=== PATIENT | female | born 1995 | race Caucasian/White ===

== ENCOUNTER 2016-08-08 21:38 | Emergency (ER) | payer MEDICAID ==
[2015-11-25 05:15] VITALS: BMI 27.0
[~2016-08-08 21:38] MED LIST: BUSPAR10 MG PO; PRENATAL COMPLE1 TAB PO; PROAIR HFA8.5 GM INH
[2016-08-08 22:41] LABS: HCG URINE NEGATIVE (NEGATIVE)
== END 2016-08-08 23:18 | disposition home or self-care (01) ==
LOC: D.ER 21:38
PROVIDERS: Nurse Practitioner Acute Care
DX: S00.01XA Abrasion of scalp, initial encounter (principal); V89.2XXA Person injured in unspecified motor-vehicle accident, traffic, initial encounter; Y93.89 Activity, other specified; Y92.410 Unspecified street and highway as the place of occurrence of the external cause

== ENCOUNTER 2018-10-17 20:36 | Emergency (ER) | payer MEDICAID ==
[~2018-10-17] VITALS: Ht 162.6 cm; Wt 59.1 kg
[2018-10-17 20:40] VITALS: Ht 162.6 cm; Wt 59.1 kg
[2018-10-17] MEDS ORDERED: ERYTHROMYCIN OPT1 GM EACH EYE (22:50)
[2018-10-17 23:24] VITALS: BP 110/74
== END 2018-10-17 23:15 | disposition home or self-care (01) ==
LOC: D.ER 20:36
DX: H10.31 Unspecified acute conjunctivitis, right eye (principal)

== ENCOUNTER 2018-11-26 22:46 | Emergency (ER) | payer OTHER ==
[~2018-11-26] VITALS: Ht 162.6 cm; Wt 63.6 kg
[~2018-11-26 22:46] MED LIST changes: +ERYTHROMYCIN OPT1 GM EACH EYE
[2018-11-26 23:00] VITALS: Ht 162.6 cm; Wt 63.6 kg
[2018-11-26] MEDS ORDERED: DOXYCYCLINE HY100 M2 PO (23:53)
[2018-11-27 00:18] VITALS: BP 91/50
== END 2018-11-27 00:19 | disposition home or self-care (01) ==
LOC: D.ER 22:46
DX: L03.114 Cellulitis of left upper limb (principal)

== ENCOUNTER → 2019-07-14 10:05 | Outpatient (CLI) | payer OTHER ==
[2018-11-26 23:00] VITALS: BMI 24.0
[~2019-07-14 10:05] MED LIST changes: +DOXYCYCLINE HY100 M2 PO
== END | disposition home or self-care (01) ==
LOC: D.US 10:00
PROVIDERS: ATTEND Nurse Practitioner Family
DX: N64.4 Mastodynia (principal)

== ENCOUNTER 2019-09-18 20:54 | Emergency (ER) | payer OTHER ==
[2019-09-18 20:59] VITALS: Ht 162.6 cm
[2019-09-18] MEDS ORDERED: NASONEX NASAL S17 GM NS (21:28)
[2019-09-18] MEDS ORDERED: ALBUTEROL SULF8.5 GM INH (21:28)
[2019-09-18 22:07] VITALS: BP 111/55
== END 2019-09-18 22:12 | disposition home or self-care (01) ==
LOC: D.ER 20:54
DX: J30.9 Allergic rhinitis, unspecified (principal)

== ENCOUNTER 2020-08-21 16:26 | Outpatient (CLI) | payer OTHER ==
[2020-05-08 14:32] VITALS: BMI 26.3
[~2020-08-21 16:26] MED LIST changes: +ALBUTEROL SULF8.5 GM INH; +NASONEX NASAL S17 GM NS
[2020-08-21 17:12] LABS: BASOPHILS 0.2 % (0-2); EOSINOPHILS 0.5 % (0-7); HEMATOCRIT 35.8 % (36.0-48.0); HEMOGLOBIN 11.6 g/dL (12-16); IMMATURE GRANULOCYTES 0.8 % (0-5); LYMPHOCYTE ABS# 2.41 10x3/uL (1.18-3.74); LYMPHOCYTES 18.1 % (15-50); MCH 25.8 pg (26.0-34.0); MCHC 32.4 g/dL (31.0-37.0); MCV 79.7 fL (80.0-100.0); MEAN PLATELET VOLUME 10.5 fL (7.4-10.4); MONOCYTES 6.9 % (2-11); NEUTROPHILS 73.5 % (40-80); RBC 4.49 10x6/uL (4.00-5.40); RDW 13.3 % (11.5-14.5); WBC 13.3 10x3/uL (4.8-10.8)
[2020-08-21 17:13] LABS: PLATELET COUNT 273 10x3/uL (130-400)
[2020-08-21 17:17] LABS: CALC OSMOLALITY 268 mosm/kg (275-300); CALCIUM 8.8 mg/dL (8.5-10.1); CARBON DIOXIDE 26.2 mmol/L (21.0-32.0); CHLORIDE - SERUM 103 mmol/L (98-107); CREATININE - SERUM 0.6 mg/dL (0.6-1.3); GLUCOSE 75 mg/dL (74-106); HCG SERUM POSITIVE (NEGATIVE); POTASSIUM - SERUM 3.6 mmol/L (3.5-5.1); SODIUM 136 mmol/L (136-145); UREA NITROGEN 6 mg/dL (7-18); eGFR NON AFRICAN AMERICAN > 90 mL/min (90-120)
[2020-08-21 17:32] LABS: BILIRUBIN NEGATIVE (NEGATIVE); KETONE NEGATIVE (NEGATIVE); NITRITE NEGATIVE (NEGATIVE); UROBILINOGEN NORMAL mg/dL (< 2)
[2020-08-21 17:46] LABS: ALBUMIN 2.8 g/dL (3.4-5.0); ALKALINE PHOSPHATASE 79 U/L (30-120); ALT (SGPT) 22 U/L (10-68); BILIRUBIN - TOTAL 0.13 mg/dL (0.2-1.3); HCG - QUANTITATIVE (MATERNAL) 27967 mIU/mL; PROTEIN - SERUM 6.8 g/dL (6.4-8.2)
== END 2020-08-21 17:39 | disposition home or self-care (01) ==
LOC: D.LDO 16:26 → D.ER 16:26 → EDSTATUS 16:57 → D.LDO 17:39
PROVIDERS: Family Medicine; ATTEND Obstetrics & Gynecology
DX: O26.899 Other specified pregnancy related conditions, unspecified trimester (principal); R10.9 Unspecified abdominal pain

== ENCOUNTER 2020-11-01 16:38 | Outpatient (CLI) | payer OTHER ==
[2020-05-08 14:32] VITALS: BMI 26.3
[2020-11-01 19:15] LABS: BILIRUBIN NEGATIVE (NEGATIVE); KETONE NEGATIVE (NEGATIVE); NITRITE NEGATIVE (NEGATIVE); UROBILINOGEN NORMAL mg/dL (< 2)
[2020-11-01 19:16] LABS: BACTERIA MANY HPF (NONE SEEN); SQUAMOUS EPITHELIAL 0-5 HPF (0-4); WHITE CELLS - URINE 0-5 HPF (0-4)
== END 2020-11-01 20:14 | disposition home or self-care (01) ==
LOC: D.LDO 16:38
PROVIDERS: ATTEND Obstetrics & Gynecology
DX: O35.9XX0 Maternal care for (suspected) fetal abnormality and damage, unspecified, not applicable or unspecified (principal)

== ENCOUNTER 2020-11-21 21:25 | Outpatient (CLI) | payer OTHER ==
[2020-05-08 14:32] VITALS: BMI 26.3
[2020-11-21 23:58] LABS: BILIRUBIN NEGATIVE (NEGATIVE); KETONE NEGATIVE (NEGATIVE); NITRITE NEGATIVE (NEGATIVE); UROBILINOGEN NORMAL mg/dL (< 2)
[2020-11-21 23:59] LABS: BACTERIA MODERATE HPF (NONE SEEN); SQUAMOUS EPITHELIAL 0-5 HPF (0-4); WHITE CELLS - URINE 0-5 HPF (0-4)
== END 2020-11-22 00:10 | disposition home or self-care (01) ==
LOC: D.LDO 21:25 → D.ER 21:25 → EDSTATUS 22:09 → D.LD 22:12 → D.LDO 11-22 00:10
PROVIDERS: ATTEND Student in an Organized Health Care Education/Training Program
DX: O35.9XX0 Maternal care for (suspected) fetal abnormality and damage, unspecified, not applicable or unspecified (principal)

== ENCOUNTER 2020-12-01 20:48 | Outpatient (CLI) | payer OTHER ==
[~2020-12-01] VITALS: Ht 149.9 cm; Wt 78.5 kg
[2020-12-01 20:32] VITALS: Ht 149.9 cm; Wt 78.5 kg
[2020-12-01 21:55] LABS: BASOPHILS 0.3 % (0-2); EOSINOPHILS 1.1 % (0-7); HEMATOCRIT 33.1 % (36.0-48.0); HEMOGLOBIN 10.7 g/dL (12-16); LYMPHOCYTES 19.3 % (15-50); MCH 24.1 pg (26.0-34.0); MCHC 32.3 g/dL (31.0-37.0); MCV 74.5 fL (80.0-100.0); MEAN PLATELET VOLUME 11.1 fL (7.4-10.4); NEUTROPHILS 71.3 % (40-80); RBC 4.44 10x6/uL (4.00-5.40); RDW 13.6 % (11.5-14.5); WBC 11.6 10x3/uL (4.8-10.8)
[2020-12-01 21:57] LABS: BILIRUBIN NEGATIVE (NEGATIVE); KETONE NEGATIVE mg/dL (< 1+); NITRITE NEGATIVE (NEGATIVE); UROBILINOGEN NORMAL mg/dL (< 2)
[2020-12-01 22:07] LABS: PLATELET COUNT 172 10x3/uL (130-400)
[2020-12-01 22:07] LABS: BACTERIA FEW HPF (<MOD); SQUAMOUS EPITHELIAL 11 HPF (0-4); WHITE CELLS - URINE 4 HPF (0-4)
[2020-12-01 22:12] LABS: CALC OSMOLALITY 272 mosm/kg (275-300); CALCIUM 8.1 mg/dL (8.5-10.1); CARBON DIOXIDE 23.6 mmol/L (21.0-32.0); CHLORIDE - SERUM 103 mmol/L (98-107); CREATININE - SERUM 0.6 mg/dL (0.6-1.3); GLUCOSE 75 mg/dL (74-106); POTASSIUM - SERUM 3.8 mmol/L (3.5-5.1); SODIUM 138 mmol/L (136-145); UREA NITROGEN 6 mg/dL (7-18); eGFR NON AFRICAN AMERICAN > 90 mL/min (90-120)
[2020-12-01] MEDS ORDERED: ZITHROMAX TRI-500 MG PO (22:22)
[2020-12-03 07:15] LABS: RAPID PLASMA REAGIN Non Reactive (Non Reactive)
== END 2020-12-02 00:44 | disposition home or self-care (01) ==
LOC: D.LDO 20:48 → D.LD 22:48 → D.LDO 12-02 00:44
PROVIDERS: ATTEND Obstetrics & Gynecology
DX: O26.899 Other specified pregnancy related conditions, unspecified trimester (principal); W19.XXXA Unspecified fall, initial encounter

== ENCOUNTER 2020-12-07 21:00 | Inpatient (IN) | payer OTHER ==
[~2020-12-07] VITALS: Ht 149.9 cm; Wt 79.4 kg
[~2020-12-07 21:00] MED LIST changes: +ZITHROMAX TRI-500 MG PO
[2020-12-07 23:06] LABS: BASOPHILS 0.3 % (0-2); EOSINOPHILS 0.2 % (0-7); HEMATOCRIT 32.8 % (36.0-48.0); HEMOGLOBIN 10.6 g/dL (12-16); LYMPHOCYTES 17.6 % (15-50); MCH 23.7 pg (26.0-34.0); MCHC 32.3 g/dL (31.0-37.0); MCV 73.6 fL (80.0-100.0); MEAN PLATELET VOLUME 10.5 fL (7.4-10.4); NEUTROPHILS 74.9 % (40-80); PLATELET COUNT 184 10x3/uL (130-400); RBC 4.46 10x6/uL (4.00-5.40); RDW 13.9 % (11.5-14.5); WBC 12.5 10x3/uL (4.8-10.8)
[2020-12-07 23:20] LABS: NITRITE NEGATIVE (NEGATIVE); PH 6.5 (5.0-8.0)
[2020-12-07 23:21] LABS: BACTERIA MODERATE HPF (NONE SEEN); BILIRUBIN NEGATIVE (NEGATIVE); KETONE 3+ mg/dL (NEGATIVE); SQUAMOUS EPITHELIAL 27 HPF (0-4); UROBILINOGEN 2 mg/dL (< 2); WHITE CELLS - URINE 6 HPF (0-4)
[2020-12-07 23:35] VITALS: BP 122/58; Ht 149.9 cm; Wt 79.4 kg
[2020-12-08 00:54] LABS: UDS - AMPHET NEGATIVE QUAL (NEGATIVE); UDS - BARB NEGATIVE QUAL (NEGATIVE); UDS - BENZO NEGATIVE QUAL (NEGATIVE); UDS - COCAINE NEGATIVE QUAL (NEGATIVE); UDS - OPIATE NEGATIVE QUAL (NEGATIVE); UDS - PCP NEGATIVE QUAL (NEGATIVE); UDS - THC NEGATIVE QUAL (NEGATIVE)
--- NOTE | 2020-12-08 00:57 | NUR ---
BABY: 0041 PLACENTA: [id number]
--- NOTE | 2020-12-08 03:53 | NUR ---
RECOVERY COMPLETED, VSS, AFEBRILE, RESP EVEN AND UN LABORED, HEART RRR WITH NO AUDIBLE MURMUR, LUNGS CTAB, ABD SOFT AND MILDLY TENDER TO TOUCH, FF AT U/1 AND MIDLINE, LOCHIA RUBRA MODERATE AMOUNT NO CLOTS ON LIGHT FUNDAL MASSAGE, PERICARE AND THOMAS CARE COMPLETED, PERIPAD/CHUX REPLACED, THOMAS EMPTIED 130 ML CLEAR YELLOW URINE AND RESET TO GRAVITY DRAINAGE, ICE PACK OVERLAY TO INCISION SITE, DRESSING CDI TO LOW TRANSVERSE INCISION. BLANCO FREELY, NEGATIVE ARIADNA'S SIGN B LE, NO EDEMA NOTED. PIV INFUSING NS WITH 20 UNITS PITOCIN AT 125ML/HR WITHOUT DIFFICULTY TO LEFT HAND, DENIES C/O PAIN OR NEED FOR PRN PAIN MEDICATION OFFERED AT THIS TIME, [place]ON [place] SODA PROVIDED UPON REQUEST, NO OTHER NEEDS VOICED OR CONCERNS. C/L IN EASY REACH, HOB ELEVATED 30 DEGREES, SR UP X2, BED BRAKES LOCKED, BED IN LOW POSITION, SUPPORT PERSON SLEEPIGN ON COUCH IN PT ROOM, NAD NOTED. WILL MONITOR FOR CHANGES IN CONDITION.
--- NOTE | 2020-12-08 04:46 | NUR ---
PT UNABLE TO USE C/L-STATES NOT WORKING ALTHOUGH TV REMOTE PORTION DOES WORK; FAMILY MEMBER TO NURSING DESK TO REQUEST PRN PAIN MEDICATION, SAME PROVIDED, ENCOURAGED TO NOTIFY THIS RN OR COME TO NURSING DESK UNTIL MAINTENANCE ROUNDS TODAY; WORK ORDER COMPLETD. PT DENIES OTHER NEEDS AT THIS TIME.
--- NOTE | 2020-12-08 05:20 | NUR ---
ROUNDS COMPLETED, PT AAOX4, RESP EVEN AND UNLABORED, DENIES C/O PAIN OR NEEDS/CONCERNS AT THIS TIME, SUPPORT PERSON AT BS. WILL MONITOR.
--- NOTE | 2020-12-08 06:43 | NUR ---
PT AAOX4 ON ROUNDS, DENIES C/O PAIN, PERICARE/FOLY CARE COMPLETED, PERIPAD CHANGED, THOMAS EMPTIED 130 ML AND RESET TO GRAVITY DRAINAGE. ICE PACK OVERLAY TO LOW TRANSVERSE INCISION DRESSING, DRESSING CDI TO INSPECTION. CUP OF LEMON [place] SODA PROVDED PER REQUEST, NO OTHER NEEDS VOICED AT THIS TIME.
[2020-12-08 09:01] VITALS: BP 114/55
--- NOTE | 2020-12-08 09:01 | NUR ---
sHIFT ASSESSMENT COMPLETED PER FLOWSHEET. VSS. FUNDUS FIRM, MIDLINE AND UU WITH SMALL AMOUNT RUBRA LOCIA NO CLOTS NOTED. COMPLAINS OF ABD AND INCISIONAL DISCOMFORT 3/10, MEDICATED PER EMAR. LOW TRANSVERSE ABD INSICSION WELL APPROXIMATED, IN TACT, NO DRAINAGE NOTED. INSTRUCTED ON INCISIONAL CARE AND CLEAN PERIPAD PLACED OVER INCISION. EDUCATIED ON S/S OF INFECTION AND ACTIVITY LIMITATIONS, VERBALIZED UNDERSTANDING. REPORTS PASSING FLATUS. THOMAS IN PLACE. URINE CLEAR YELLOW W/O ODER. DENIES NEEDS AT THIS TIME. POC DISCUSSED, VERBALIZED UNDERSTANDING AND DENIES QUESTIONS AT THIS TIME. BED IN LOW POSITION WITH SRUPX2 CALL LIGHT AND PHONE WITHIN REACH. WILL CONTINUE TO MONITOR
--- NOTE | 2020-12-08 10:00 | NUR ---
DR BOOGIE GAVE VERBAL ORDERS TO GET PT UP, DC THOMAS, REGULAR DIET, PUT ON PO PERCOCET 5/10 FOR PAIN AND ONCE TORADOL HAS BEEN GIVEN 4X CAN GIVE 800 MOTRIN Q8HRS FOR PAIN ALSO.
--- NOTE | 2020-12-08 11:16 | NUR ---
PT STATES SHE FEELS HOT AND NAUSEATED. GAVE ZOFRAN. REFILLED GLASS OF WATER. PLACED COOL RAG ON FORHEAD, ADJUSTED TEMP IN ROOM, REMOVED SCD AND SOCKS, PT STATES FEELING BETTER. EMPTIED THOMAS 500CC CLEAR YELLOW URINE. DENIES FURTHER NEEDS AT THIS TIME. WILL MONITOR CLOSELY
--- NOTE | 2020-12-08 14:00 | NUR ---
PT UP TO THE BATHROOM. VOIDED WITHOUT COMPLAINT. FIRST VOID AFTER THOMAS REMOVED.
--- NOTE | 2020-12-08 14:30 | NUR ---
PT UP TO THE BATHROOM TO VOID. NO COMPLAINTS. SECOND VOID AFTER THOMAS REMOVED
[2020-12-08 16:30] VITALS: BP 112/64
--- NOTE | 2020-12-08 19:00 | NUR ---
PT UP TO VOID. NO COMPLAINTS. THIRD VOID AFTER THOMAS REMOVED.
[2020-12-08 19:15] VITALS: BP 112/55
--- NOTE | 2020-12-08 19:15 | NUR ---
PM ASSESSMENT COMPLETED, VSS, AFEBRILE, RESP EVEN AND UNLABORED, LUNGS CTAB, INCENTIVE SPIROMETRY TO 2000ML INSPIRED VOLUME, HEART RRR WITHOUT AUDIBLE MURMUR, BS+X4 QUADS, +FLATUS, LOW TRANSVERSE ABD DRESSING IN PLACE-CDI WITHOUT DRAINAGE NOTED, VOIDING WITHOUT DIFFICULTY, FF AT U/2 AND MIDLINE, LOCHIA RUBRA SCANT AMOUNT, DENIES CLOTS, BLANCO FREELY, NEGATIVE ARIADNA'S SIGN B LE, PEDAL PULSES +/=/+2 B. CUP OF ICE WATER AND LEMON [place] SODA PROVIDED UPON REQUEST, DENIES OTHER NEEDS. REVIEWED POC WITH PT AND FAMILY AT BS STATING UNDERSTANDING OF ALL INFORMATION PROVIDED. WILL MONITOR.
--- NOTE | 2020-12-08 20:15 | NUR ---
ROUNDS COMPLETED, DENIES NEEDS/CONCERNS. VOIDS WITHOUT DIFFICULTY-STATES X3 SINCE CATHETER REMOVAL. REPORTS LOCHIA SCANT WITHOUT CLOTS ON INQUIRY. FAMILY AT BS WITH PT. C/L IN EASY REACH, CONTINUE TO MONITOR.
--- NOTE | 2020-12-08 21:36 | NUR ---
ROUNDS COMPLETED, PROVIDED LAST DOSE TORADOL, PT NOW DECIDES DOES NOT WANT PERCOCET UNTIL AFTER SIGNIFICANT OTHER VISITS PT AND THIS PM. PROVIDED CUP OF ICE WATER. NO OTHER NEEDS VOICED AT THIS TIME. WILL MONITOR.
--- NOTE | 2020-12-08 22:19 | OP ---
PATIENT NAME: DINORA WOLF MEDICAL RECORD: [id number] :96 LOCATION:[id number] ADMISSION DATE:12/07/20 SURGEON: JEROME PIERRE DO DATE OF OPERATION: 12/08/2020 PREOPERATIVE DIAGNOSIS: A 37 weeks painful contractions in labor, prior . POSTOPERATIVE DIAGNOSES: A 37 weeks painful contractions in labor, prior . PRIMARY SURGEON: Jerome Pierre DO ANESTHESIA: Spinal. PROCEDURE: Repeat low transverse via Pfannenstiel incision. FINDINGS: Viable male born at 12:41 a.m. vertex position, Apgars 9 and 9, weight 7 pounds 8-1/2 ounces. Clear amniotic fluid. True knot in cord. SPECIMENS: Placenta and cord blood. ESTIMATED BLOOD LOSS: 850 cc. IV FLUIDS: Per anesthesia. URINE OUTPUT: 500 cc clear yellow urine. INFECTION PROPHYLAXIS: Clindamycin and gentamicin. COMPLICATIONS: None. INDICATIONS: The patient continued to have painful contractions despite IV hydration with increasing pain and regularity. Due to labor, decision made for repeat . Risks reviewed including bleeding, pain, infection, damage to surrounding structures, reoperation, and VTE, risks of prematurity for infant. The patient expressed understanding and agreed to the procedure. DESCRIPTION OF PROCEDURE: The patient was taken to the operating room where spinal anesthesia was administered and found to be adequate. She was prepped and draped in the normal sterile fashion in dorsal supine position with leftward tilt. Pfannenstiel skin incision was made with the scalpel and carried down to the underlying layer of fascia. The fascia was incised in the midline and the incision extended laterally with Souza scissors. The fascia was grasped with Janine clamps and the rectus muscle dissected off sharply off the inferior and superior aspects. The rectus muscle in the midline. The peritoneum identified and noted to be free of adherent bowel or bladder and entered bluntly. The peritoneum was further with gentle traction. Bladder blade was placed. Metzenbaums used to create a bladder flap. Bladder blade replaced. Transverse incision was made on the uterus with scalpel, extended with upward and downward gentle traction. 's head brought to the incision, very large in size. The vacuum applied with suction to the green level and one gentle pull. This allowed the head to be delivered without difficulty. No OPERATIVE REPORT [id number] DINORA WOLF nuchal cord and rest of the baby's shoulders and body followed without difficulty. Vacuum removed. Mouth and nose were suctioned. Cord was clamped and cut. The infant handed to awaiting pediatric nurse with good cry. Placenta delivered manually. Uterus exteriorized. Dry laparotomy sponge used to assure complete removal of placental membranes. Hysterotomy reapproximated with 0 Vicryl in a running locked fashion. Area of bleeding noted on the right lateral side and this side was reinforced with multiple figure of eight stitchewith good hemostasis. Some bleeding on the inferior edge, buzzed with cautery with good hemostasis. Attention was turned to the posterior cul-de-sac, this irrigated and suctioned to remove blood clots and fluid. Hysterotomy was reexamined and noted to be hemostatic. Fundus firm. Uterus replaced into the abdominal cavity. Bladder blade replaced. Moist laparotomy sponges used to clear gutters of blood clots and fluid. Muscle reapproximated in a running fashion with 2-0 Monocryl. The muscle irrigated and no bleeding noted. Fascia closed in a continuous fashion with 0 Vicryl. Subcutaneous layer irrigated and bleeding vessels cauterized with bovie, then closed with plain gut. Skin closed in a subcuticular fashion with 3-0 Monocryl and Dermabond applied. Dressing applied. The patient tolerated the procedure well and was taken to the recovery room in stable condition. All laps, needles, and instrument counts were correct x2. TRANSINT:[id number] Voice Confirmation ID: [id number] DOCUMENT ID: [id number] JEROME PIERRE DO at 2219 CC: [id number] DICTATION DATE: 12/08/201858 MELLOWING MACHINE OPERATOR: 12/08/202022 ADM IN [facility] [address] [place] [address]
--- NOTE | 2020-12-08 22:30 | NUR ---
ROUNDS COMPLETED, RESP EVEN AND UNLABORED, NAD NOTED. C/L IN EASY REACH, WILL MONITOR.
[2020-12-08 23:36] VITALS: BP 112/67
--- NOTE | 2020-12-08 23:36 | NUR ---
ROUNDS COMPLETED. VSS, AFEBRILE, DENIES C/O PAIN, +FLATUS, FF AT U/2 AND MIDLINE, LOCHIA RUBRA SCANT NO CLOTS, VOIDING WITHOUT DIFFIUCLLTY, DENIES C/O BREAST PAIN. C/L IN EASY REACH, CUP OF LEMON [place] SODA PROVIDED UPON REQUEST, NO OTHER NEEDS AT THIS TIME. CONTINUE TO MONITOR.
--- NOTE | 2020-12-09 01:50 | NUR ---
PT USING C/L TO REQUEST SNACK, SNACKS AVAILABLE PROVIDED AND PT DENIES OTHER NEEDS AT THIS TIME, C/L IN EASY REACH, WILL MONITOR.
--- NOTE | 2020-12-09 03:50 | NUR ---
ROUNDS COMPLETED, PT RESTING IN BED WITH EYES CLOSED, RESP EVEN AND UNLABORED, C/L IN EASY REACH. CONTINUE TO MONITOR.
--- NOTE | 2020-12-09 04:45 | NUR ---
PT , NAD NOTED. C/L IN EASY REACH.
--- NOTE | 2020-12-09 05:59 | NUR ---
PT RINGS CALL LIGHT REQUESTING ICE WATER TO DRINK. THIS RN TO BEDSIDE. FRESH ICE WATER SERVED. PT DENIES FURTHER NEEDS OR C/O PAIN. PT ASSISTED W/SWADDLING BABY PER REQUEST.
--- NOTE | 2020-12-09 06:30 | NUR ---
MOLDER FITTING HERE FOR AM LAB DRAWS.
[2020-12-09 07:00] LABS: BASOPHILS 0.4 % (0-2); EOSINOPHILS 0.4 % (0-7); HEMOGLOBIN 8.3 g/dL (12-16); LYMPHOCYTES 17.9 % (15-50); MCH 24.1 pg (26.0-34.0); MCV 75.2 fL (80.0-100.0); MEAN PLATELET VOLUME 10.1 fL (7.4-10.4); MONOCYTES 6.3 % (2-11); PLATELET COUNT 171 10x3/uL (130-400); RBC 3.46 10x6/uL (4.00-5.40); RDW 14.1 % (11.5-14.5); WBC 12.5 10x3/uL (4.8-10.8)
[2020-12-09 07:15] VITALS: BP 100/52
--- NOTE | 2020-12-09 07:15 | NUR ---
RECEIVED PT LYING IN SEMI-RAIMREZ'S POSITION. VSS. HRRR WITHOUT AUDIBLE MURMUR. BBS CLEAR. BS X 4. ABDOMEN SOFT/NON-DISTENDED. PT STATES PASSING GAS. FUNDUS FIRM AT U/U. RUBRA LOCHIA SCANT AMT. NO CLOTS OR HEAVY BLEEDING PER PT STATES. ABDOMINAL DRESSING DRY WITHOUT DRAINAGE NOTED. NEG HOMANS' SIGN. PPP. MILD, NON-PITTING EDEMA NOTED TO BLE. SL SITE CLEAR. PT STATES PASSING GAS, NO BM SINCE [facility]AL TO [facility]. C/O GAS PAIN TO LEFT SHOULDER. PT OOB AND AMB TO BR TO SHOWER. TOILETRIES PROVIDED. BED LINENS CHANGED. ABDOMINAL DRESSING REMOVED. NILES INTACT. NO DRAINAGE, REDNESS OR SWELLING NOTED. PT AMBULATES BACK TO BED. MUKUND ACTIVITY WELL.
--- NOTE | 2020-12-09 09:22 | NUR ---
PT LYING TO RIGHT SIDE IN BED. EYES CLOSED. RESP NON-LABORED. PT NOT DISTURBED TO ALLOW FOR REST. SR UP X 2. CALL LIGHT IN REACH. PT VISITOR IN ROOM WITH PT.
--- NOTE | 2020-12-09 10:50 | NUR ---
PT SITTING UP IN BED. AWAKE. COLACE GIVEN PO. PT INSTRUCTED ON MED. VERBALIZES UNDERSTANDING. PT DENIES NEEDS OR C/O.
[2020-12-09 12:06] LABS: HEMATOCRIT 28.5 % (36.0-48.0); HEMOGLOBIN 9.2 g/dL (12-16)
--- NOTE | 2020-12-09 12:09 | NUR ---
PT AMBULATORY IN ROOM. INFORMED THAT DR BOOGIE WILL COME SEE PT THIS AFTERNOON. PT VERBALIZES UNDERSTANDING WITH NO C/O VOICED. REQUESTS TO AMBULATE IN STOUT. MASK PROVIDED TO PT.
--- NOTE | 2020-12-09 13:05 | NUR ---
DR BOOGIE VISITS WITH PT. STATES WILL COME SEE PT AFTER CLINIC.
--- NOTE | 2020-12-09 13:37 | NUR ---
PT SITTING UP IN BED. HOLDS WITH MUCH WARMTH SHOWN. DENIES NEEDS.
[2020-12-09 15:39] VITALS: BP 109/66
--- NOTE | 2020-12-09 15:39 | NUR ---
PT SITTING UP IN BED. INFANT. VSS. PT DENIES NEEDS OR C/O.
--- NOTE | 2020-12-09 16:08 | NUR ---
THIS RN TO ROOM FOR PER PT REQUEST FOR FOOD. SANDWICH TRAY, CHIPS, SODA, AND PUDDING GIVEN PER REQUEST. PT ALSO PROVIDED WITH PADS, PANTIES, TOILET PAPER, AND ROOM TRASHES CHANGED. PT DENIES FURTHER NEEDS AT THIS TIME. SRUx2, CL IN REACH. RESTING ON PT CHEST. PT FAMILY MEMBER ON BEDSIDE COUCH.
--- NOTE | 2020-12-09 16:31 | NUR ---
PT REFUSES TDAP. STATES "I WILL GET IT LATER".
[2020-12-09] MEDS ORDERED: PERCOCET 5-3251 TAB PO (16:52)
[2020-12-09] MEDS ORDERED: IBUPROFEN800 MG PO (16:52)
--- NOTE | 2020-12-09 17:05 | NUR ---
DISCHARGE INSTRUCTIONS GIVEN TO PT. PT VERBALIZES UNDERSTANDING OF ALL INSTRUCTIONS. COPIES GIVEN TO PT. PT GIVEN RX FOR PERCOCET AND IBUPROFEN. SL DC'D WITH CATHELON INTACT. PRESSURE BANDAGE TO SITE. PT MUKUND WELL. PREPARES FOR DISCHARGE.
--- NOTE | 2020-12-09 17:10 | NUR ---
PT GIVEN MOTRIN 800 MG AND MYLICON 80 MG CHEW TAB. PT INSTRUCTED ON MEDS. VERBALIZES UNDERSTANDING.
--- NOTE | 2020-12-09 18:05 | NUR ---
PT READY FOR DISCHARGE. DISCHARGED WITH , IN STABLE CONDITION VIA WHEELCHAIR TO PRIVATE VEHICLE.
[2020-12-10 08:13] LABS: RAPID PLASMA REAGIN Non Reactive (Non Reactive)
== END 2020-12-09 18:05 | disposition home or self-care (01) | DRG 788 ==
LOC: D.LDO 21:00 → D.LD 22:55
PROVIDERS: ADMIT Obstetrics & Gynecology; ATTEND Obstetrics & Gynecology
PROC: 10D00Z1 Extraction of Products of Conception, Low, Open Approach (ICD-10-PCS; principal; 2020-12-08 00:01)
DX: O34.211 Maternal care for low transverse scar from previous cesarean delivery (principal); Z3A.37 37 weeks gestation of pregnancy; Z37.0 Single live birth; O69.2XX0 Labor and delivery complicated by other cord entanglement, with compression, not applicable or unspecified